=== PATIENT | female | born 1945 | race Caucasian/White ===

== ENCOUNTER 2019-12-24 06:51 | Day surgery (SDC) | payer MEDICARE, SELFPAY ==
--- NOTE | 2019-12-05 10:49 | EKG12_ITS ---
Test Reason : PRE-OP Blood Pressure : / mmHG Vent. Rate : 060 BPM Atrial Rate : 060 BPM P-R Int : 186 ms QRS Dur : 084 ms QT Int : 400 ms P-R-T Axes : 028 007 021 degrees QTc Int : 400 ms Normal sinus rhythm Normal ECG Confirmed by CHAGO LOCKE, REGINA ([id number]), editorial cartoonist SILVER RODRÍGUEZ ([id number]) on 12/10/2019 9:23:02 AM Referred By: Jim Ball Confirmed By:REGINA ANDERS MD
[2019-12-05 11:04] LABS: Hematocrit 37.2 % (37-47); Hemoglobin 13.9 g/dL (12.0-15.0); Mean Corp Hgb Conc 37.4 g/dL (32-36); Mean Corpuscular Hgb 34.3 pg (27.0-32.0); Mean Corpuscular Volume 91.9 fL (81-99); Mean Platelet Vol. 8.9 fl (6.2-12.0); Platelet Count 169 K/mm3 (150-450); RBC Distribution Width CV 12.3 % (11.6-14.6); Red Blood Count 4.05 M/mm3 (4.2-5.4); White Blood Count 7.3 K/mm3 (4.4-11.0)
[2019-12-05 11:39] LABS: AST(SGOT) 25 U/L (15-37); Alanine Aminotransfer ALT/SGPT 23 U/L (13-56); Albumin, Serum 3.4 g/dL (3.2-5.0); Alkaline Phosphatase 76 U/L (45-117); Anion Gap 6 (5-15); BUN 14 mg/dL (7-18); BUN/Creat Ratio 25.7 RATIO (10-20); Bilirubin, Direct 0.16 mg/dL (0.00-0.30); Calcium,Total 8.6 mg/dL (8.5-10.1); Chloride 92 mmol/L (98-107); Creatinine, Serum 0.54 mg/dL (0.55-1.02); EST Glomerular Filtration Rate 115 mL/min (>60); Est Glom Filt Rate - Afr Amer 139 mL/min (>60); Globulin 3.5 g/dL (2.2-4.2); Glucose 94 mg/dL (74-106); Protein, Total 6.9 g/dL (6.4-8.2); Sodium Level 126 mmol/L (136-145)
[2019-12-05 11:44] LABS: Hemoglobin A1c 5.4 % (3.8-5.6)
--- NOTE | 2019-12-20 15:58 | HP.PCM_ITS ---
History and Physical Date of Admission: 12/24/19 Surgical History and Physical Olinda Calderón, a 74 year old female 2 0 0 0 2, presents for Vaginal Hysterectomy and AP Repair on December 24, 2019 at 7:30. -- Utero-Vaginal Prolapse Symptoms -- Prolapse which began on going. Olinda Waters claims it started gradual and has been present ongoing. It occurs all the time. It is located in the vaginal. Olinda Waters characterizes the quality pressure, bulge. Severity is worsening; It is aggravated by standing, walking, lifting. Associated signs and symptoms are pressure, pain. Additional comments are: patient states has had prolapse but getting worse. MEDICATIONS HISTORY: Patient is also takin. amlodipine 5 mg tablet, 1 PO QD 2. buspirone 10 mg tablet, 1 PO BID 3. duloxetine 60 mg capsule,delayed release, 1 PO QD 4. Linzess 145 mcg capsule, As Directed 5. Lyrica 150 mg capsule, 1 PO BID 6. nadolol 20 mg tablet, 1 PO QD 7. nystatin 100,000 unit/gram topical powder, As Directed 8. pantoprazole 40 mg tablet,delayed release, 1 PO BID 9. Repatha SureClick 140 mg/mL subcutaneous pen injector, As Directed 10. Voltaren 1 % topical gel, As Directed ALLERGIES: Codeine, Darvon, Liptor, Mevacor, Oxacillin, Throat closes, valium, Zocor, Codeine, Fatigue, Darvon, Intolerance-unknown, Lipitor, Liver failure, Mevacor, Liver failure, Oxacillin, Anaphylaxis, Valium, Intolerance-unknown, Zocor and Liver failure Infections - Chicken pox and Measles Illnesses - breast cancer, lymphedema Accidents - None Hospitalizations - Childbirth and see surgery heart concerns, high BP, spinal stenosis; Review of Systems: GENERAL - Denies fever, or chills SKIN - Denies skin changes EYES - Denies visual changes EARS - Denies difficulty hearing NOSE - Denies nasal congestion or bleeding MOUTH - Denies sore throat or difficulty swallowing NECK - Denies pain or swelling RESPIRATORY - Denies shortness of breath or wheezing CARDIOVASCULAR - Denies palpitations or chest pain GASTROINTESTINAL - Denies nausea, vomiting, diarrhea, constipation GENITOURINARY - Denies dysuria, frequency of urination, incontinence of urine MUSCULOSKELETAL - Denies joint or muscle pain NEUROLOGICAL - Denies localized numbness or weakness PSYCHIATRIC - Denies depression or anxiety ENDOCRINE - Denies heat or cold intolerance, weight loss or gain HEMATO-IMMUNOLOGIC - Denies excessive bleeding with cuts SOCIAL HISTORY: Alcohol Use - denies use Smoking - denies use Diet - balanced Diet Lifestyle - Exercise - active Seat Belt Use - always Employer - retired 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 MENSTRUAL HISTORY: LMP Known?- POSTMENOPAUSAL, Age Onset Menarche - 6 PAST PREGNANCIES: Total Pregnancies - 2; Full Term Pregnancies - 2; Premature - 0; Abortions, Induced - 0; Abortions, Spontaneous - 0; Ectopics - 0; Multiple Births - 0; Living Children - 2 SURGICAL HISTORY: 1. lumpectomy-left breast ; - breast cancer 2. Tubal ; - 3. Left knee surgery, 2007 ; - Pain 4. rt and left knee surgery PHYSICAL EXAM BP- 142/76 Sitting, Right arm, regular cuff Weight- 163.0 lbs Height- 59.5 inch BMI:32.44 CONSTITUTIONAL - NAD, well nourished, and well developed HEENT - Normocephalic, PERRLA, EOMI NECK - no nodes, no nuchal rigidity and thyroid normal size and texture LYMPH NODES - edematous right arm LUNGS - CTA x2 without wheezes, crackles or rales CARDIAC - Regular rate and rhythm without rubs, murmurs, or gallops BREAST - Sitting and supine without lumps, masses, discharge, or skin changes, L breast w/ prior incisions and radiation changes to skin ABDOMEN - Without hepatosplenomegaly, distention, masses, rebound, or guarding; normal bowel sounds, no hernias EXTREMITIES - No edema or calf tenderness NEUROLOGICAL - Cranial nerves II-XII grossly intact PSYCHIATRIC - A and O to time, place, person, mood and affect External Genital Vagina - non-tender without lesions Urethra/Urethral Meatus - non-tender Bladder - non-tender Vagina - loss of rugae and cystocele 2 cm outside introitus; rectocele to introitus Cervix - without cervical motion tenderness and has normal size and features without evident lesions and protrudes to within 2 cm of the introitus with tenaculum pull-down Uterus - 5-6 cm in size, mobile and nontender Adnexa - clear without masses or tenderness ASSESSMENT/PLAN:Cystocele Midline, Uterovag Prolapse Incomplete Discussed options for treatment including expectant management, pessary use or proceeding with Vaginal Hysterectomy and AP Repair. Desires the surgery. Discussed RBAS and all questions answered.
[2019-12-24] VITALS (18 sets, daily range): BP systolic 78–141; BP diastolic 36–71; PULSE 51–84; RESP 16–98; TEMP 36.1–36.7; O2SAT 94–100; BMI 31.5
[2019-12-24 07:50] LABS: Bedside Glucose 108 mg/dL (70-110)
[2019-12-24] MEDS: Lactated Ringers 1,000 ML 100 ML IV ×2 (07:57→10:52)
[2019-12-24 08:13] LABS: Sodium Level 140 mmol/L (136-145)
--- NOTE | 2019-12-24 08:35 | HYST_PTH ---
PATIENT: JUAN WOLFF LOC: [facility] U#:[id number] AGE/SX: 74/F ROOM: RE12/24/[address]: Dr. Jim Ball MD : 1945 BED: DIS: 12/25/2019 SPEC #: [id number] RECD: 12/24/19 10:44 STATUS: DWIGHT KENNEY #: [id number] JAQUELIN: 12/24/19 08:[address]: Jim Ball DEPT: SURGICAL PATHOLOGY RECD BY: Vlad Kaur ENTERED: 12/24/19 11:41 SP TYPE: HYSTERECT OTHR DR: Dr. Pete Mandujano MD Tissues: Uterus, NOS Procedures: Surgery Specimen Level II Surgery Specimen Level V HEADER OPERATION: Vaginal hysterectomy, A & P repair PRE-OP DIAGNOSIS: Incomplete uterine vaginal prolapse cystocele midline TISSUE SUBMITTED: Uterus and vaginal mucosa MICROSCOPIC DIAGNOSIS Uterus, hysterectomy: Cervix - nabothian cysts and minimal chronic inflammation. Endometrium - inactive endometrium with cystic change. Myometrium - leiomyoma and calcifications of vessel viera. Vaginal mucosa, anterior and posterior repair: No pathologic change. AM:armida 12/25/19 MICROSCOPIC DESCRIPTION Slides are reviewed. GROSS DESCRIPTION Received in fixative is one container labeled with the patient's name and designated uterus, vaginal mucosa. The specimen consists of a hysterectomy specimen consisting of uterus with cervix and detached pieces of mucosal tissue. The uterus with cervix weighs 28 gm and measures 7.5 x 3.5 x 2 cm. The serosal surface is focally ragged. The ectocervical mucosa is unremarkable. The external os is slit-like in contour. The endocervical canal measures 3.5 cm in length and the endocervical mucosa is morales, glistening and unremarkable. The triangular endometrial cavity measures 3.5 cm in length and up to 2 cm in width. The endometrium is morales, glistening without any mass lesion and measures <0.1 cm in thickness. Sections of the uterine wall do not reveal any mass lesion and measures 1 cm in thickness. Also present in the container are five variable sized pieces of morales mucosal tissue measuring in aggregate 5.5 x 3 x 0.5 cm. No mucosal lesion is identified. Multiple instrumentation hale are noted. Boarding Mother sections are submitted in five cassettes as follows: 1 - anterior cervix, 2 - posterior cervix, 3 - anterior uterine wall, 4 - posterior uterine wall, 5 - detached pieces of mucosal tissue. / SJ:armida 12/24/19 TC:5 CPT: 05449, 45029
[2019-12-24 08:40] LABS: Thyroid Stim Hormone (TSH) 1.63 uIU/mL (0.358-3.74)
--- NOTE | 2019-12-24 08:42 | OP.PCM_ITS ---
Report of Operation Date of Procedure: 12/24/19 Pre-Operative Diagnosis: Incomplete Uterovaginal Prolapse, Cystocele, Rectocele Post-Operative Diagnosis: Incomplete Uterovaginal Prolapse, Cystocele, Rectocele Surgery/Procedure Performed:: Vaginal Hysterectomy and Anterior Posterior Repair Description of Surgical Findings:: 6 cm uterus with cystocele that protrudes to the introitus and moderate rectocele.. truck supervisor: Lindsey Acosta truck supervisor: Danika Hassan Type of Anesthesia:: General - Endotracheal Anesthesiologist: Ludmila Teague Specimen's removed: Uterus and vaginal mucosa Drains: Liao to straight drain Estimated Blood Loss (mL): 100 cc Fluids Replaced: Crystalloid Description of Procedure: Surgeon: Jim Ball MD, FACOG Indications: This is a 74-year-old patient who is been having problems with symptomatic uterovaginal prolapse. Conservative measures have not been helpful. Given this the patient desires that we proceed the above procedure. She has been counseled regarding the risk and indications of this procedure including the possibility of bleeding, infection, and injury to surrounding structures such as bowel bladder. All questions were answered. Procedure: Patient was taken to the operating room where after induction of general anesthesia she was placed in the dorsal lithotomy position and prepped and draped in the usual sterile fashion. A Liao catheter was placed. Anterior cervix was grasped with a tenaculum and anterior cervix circumscribed with cautery on a setting of 35 W coagulation. Anterior vaginal mucosa was undermined and anterior peritoneum was easily entered. The posterior aspect of the cervix was circumscribed with a knife and posterior peritoneum easily entered. Progressive bites were taken on either side of the uterine cervix and each pedicle ligated with 0 Vicryl suture. Superior pedicles were ligated ?2 with 0 Vicryl suture and sidewall pedicles were examined and oversewn where necessary with [id number] 0 Vicryl suture to achieve hemostasis. Posterior vaginal cuff was oversewn with running locked 0 Vicryl suture. Hemostasis was noted and peritoneum was closed in a pursestring fashion incorporating superior pedicles into the stitch. Vaginal cuff was then closed front to back with interrupted [id number] 0 Vicryl suture. Hemostasis was noted. Attention was turned toward the anterior repair portion of the proced ure. Anterior vaginal mucosa was undermined and divided and then imbricated toward the midline with interrupted 0 Vicryl sutures. Vaginal mucosa was trimmed and then closed with interrupted 2-0 chromic suture. Vaginal cuff was then closed front to back with interrupted [id number] 0 Vicryl suture. Hemostasis was noted. Attention was turned toward the posterior repair portion of the proced ure. Remnants of the hymenal ring were grasped with Allises and a V-shaped incision was made in the perineum. Rectovaginal mucosa was then undermined divided and then imbricated toward the midline with interrupted 0 Vicryl suture. Vaginal mucosa was trimmed and then closed with running locked 2-0 chromic suture. Remnants of the bulbocavernosus muscles were identified and brought toward the midline with a single [id number] 0 Vicryl suture and perineum was closed in the usual fashion with running and subcuticular, and oqzgkn-[id number] 2-0 chromic suture. Hemostasis was noted. Liao catheter was again opened and clear yellow urine was noted. Vagina was packed with a complete pack of half-inch iodoform tape. Patient tolerated the procedure well was taken to recovery room in satisfactory condition; sponge instrument and needle counts were all reportedly correct. Estimated blood loss for the case was 100 cc cc. Clindamycin 900 mg and gentamicin were given prior to beginning the operative procedure. There were no apparent complications of the surgery. Specimen to pathology was uterus and vaginal mucosa. Grafts/Implants Used: None - Complications None - Admit VTE Documentation VTE Pharm Prophylaxis ordered?: Yes
--- NOTE | 2019-12-24 08:45 | DCINST_ITS ---
Discharge Diet: No Restrictions Discharge Activity: Return to Normal Activity, May Not Drive - while taking narcotic pain medications., May Shower, May Take a Tub Bath May resume sexual activity in: 6-8 weeks Call your doctor if your incision/area has: Continuous Slow Oozing, Sudden Inc reased Bleeding, Increased Pain/ Swelling, Increased Redness, Foul Smelling Discharge Call your doctor if you observe: Fever of 101 or Higher, Inability to urinate, Inability to have a bowel movement, Using more than one pad per hour Allergies/Adverse Reactions: Allergies codeine Allergy (Verified 12/24/19 07:20) Rash oxacillin Allergy (Verified 12/24/19 07:20) Swelling adhesive tape Adverse Reaction (Verified 12/24/19 07:20) NEEDS FOLLOW-UP Fovpiyn-Yhr-Pzi Reductase Inhibitor Adverse Reaction (Verified 12/24/19 07:20) NEEDS FOLLOW-UP Medications to take at Discharge Amlodipine [Norvasc] 5 mg PO DAILY 11/30/19 Bifidobacterium Infantis [Align] 4 mg PO DAILY 11/30/19 Buspirone HCl 10 mg PO BID 11/30/19 Cholecalciferol (VIT D3) [Vitamin D] 1,000 unit PO DAILY 11/30/19 Duloxetine HCl 60 mg PO QHS 11/30/19 Evolocumab [Repatha Sureclick] 140 mg SQ .Q2WEEK 11/30/19 Immune Force 1 cap PO DAILY 11/30/19 Lisinopril 40 mg PO DAILY 11/30/19 Nadolol [Corgard (Beta Catalina)] 20 mg PO DAILY 11/30/19 Pantoprazole Sodium [Protonix] 40 mg PO BID 11/30/19 Pregabalin [Lyrica] 150 mg PO BID 11/30/19 Ubidecarenone [Coq-10] 100 mg PO DAILY 11/30/19 Docusate Sodium [Colace] 100 mg PO BID PRN PRN #60 cap 12/24/19 Oxycodone [Oxyir] 5 mg PO Q6H PRN PRN 7 Days #10 tablet 12/24/19 The following prescriptions were given: Docusate Sodium [Colace] 100 mg PO BID PRN PRN #60 cap PRN Reason: Constipation Transmission Status: Pending to [facility] Oxycodone [Oxyir] 5 mg PO Q6H PRN PRN 7 Days #10 tablet PRN Reason: Pain Score 6-10/10 Transmission Status: Sent to [facility] Primary Care Physician: Pete Mandujano MD [Primary Care Provider] - Test Results: Test results from this visit will be discussed in further detail at your follow- up appointment, if applicable. Please Follow Up With: Jim Ball MD When: 2 to 3 weeks
[2019-12-24 11:20] LABS: Bedside Glucose 105 mg/dL (70-110)
[2019-12-24] MEDS: Dextrose 5%-Lactated Ringers 1,000 ML 125 ML IV ×3 (12:11→22:21)
[2019-12-24] MEDS: Ketorolac 15 MG/ML Vial IV ×3 (12:11→23:10)
[2019-12-24] MEDS: Enoxaparin 30 MG/0.3 ML Syringe SC (17:39)
[2019-12-24] MEDS: busPIRone 5 MG Tablet 10 MG PO (22:35)
[2019-12-24] MEDS: Pregabalin 75 MG Capsule 150 MG PO (22:36)
[2019-12-24] MEDS: DULoxetine Hcl 60 MG Capsule PO (22:36)
[2019-12-24] MEDS: Acetaminophen 500 MG Tablet 1000 MG PO (22:37)
[2019-12-24] MEDS: Pantoprazole Sodium 40 MG Tablet PO (22:37)
[2019-12-24] MEDS: 0.9% Saline Lock 10 ML Syringe IV (23:10)
[2019-12-25 03:25] VITALS: BP 121/50; PULSE 72; RESP 18; TEMP 36.7; O2SAT 97
[2019-12-25 06:13] LABS: Creatinine, Serum 0.55 mg/dL (0.55-1.02); EST Glomerular Filtration Rate 114 mL/min (>60); Est Glom Filt Rate - Afr Amer 137 mL/min (>60); Estimated Creatinine Clearance 34.38 ml/min
[2019-12-25] MEDS: 0.9% Saline Lock 10 ML Syringe IV ×3 (06:19→06:31)
[2019-12-25] MEDS: Ketorolac 15 MG/ML Vial IV ×2 (06:19→12:03)
[2019-12-25 06:36] LABS: Scan Indicated on CBC? Y/N YES- FLAGS NOTED
[2019-12-25 06:38] LABS: POSITIVE DIFFERENTIAL YES
[2019-12-25 07:09] VITALS: O2SAT 100
[2019-12-25 07:41] VITALS: BP 100/37; PULSE 66; RESP 18; TEMP 37.1; O2SAT 98
--- NOTE | 2019-12-25 07:41 | NURSING ---
Patient ambulated in hallway with AUTOMOBILE REPAIR SERVICE ESTIMATOR with cane. Tolerated well.
[2019-12-25] MEDS: Pantoprazole Sodium 40 MG Tablet PO (07:45)
[2019-12-25] MEDS: busPIRone 5 MG Tablet 10 MG PO (07:45)
[2019-12-25] MEDS: amLODIPine 5 MG Tablet PO (07:45)
[2019-12-25] MEDS: Lisinopril 40 MG Tablet PO (07:45)
[2019-12-25] MEDS: Pregabalin 75 MG Capsule 150 MG PO (07:51)
[2019-12-25] MEDS: Nadolol 20 MG Tablet PO (07:51)
[2019-12-25 08:30] LABS: Hemoglobin 11.7 g/dL (12.0-15.0); Mean Corp Hgb Conc 33.4 g/dL (32-36); Mean Corpuscular Hgb 31.5 pg (27.0-32.0); Mean Corpuscular Volume 94.3 fL (81-99); Mean Platelet Vol. 9.8 fl (6.2-12.0); Platelet Count 139 K/mm3 (150-450); RBC Distribution Width CV 13.1 % (11.6-14.6); RBC Distribution Width SD 44.8 fl (35.1-43.9); Red Blood Count 3.71 M/mm3 (4.2-5.4); White Blood Count 8.4 K/mm3 (4.4-11.0)
--- NOTE | 2019-12-25 08:41 | PCM.PN.OB ---
Subjective: Patient without complaints. Tolerating diet well. Denies flatus. Liao catheter out. Minimal vaginal bleeding reported. Objective: Vaginal pack is out with minimal vaginal bleeding noted. Hemoglobin hemoglobin and creatinine okay. - Physical Exam Vitals/I&O's: Vital Signs Temp Pulse Resp BP Pulse Ox 98.7 F 66 18 100/37 L 98 12/25/19 07:41 12/25/19 07:41 12/25/19 07:41 12/25/19 07:41 12/25/19 07:41 Oxygen Flow Rate (L/min) 2 Oxygen Delivery Method Room Air Weight: 161 lb 9.581 oz Body Mass Index (BMI) 31.5 Finger Stick Blood Glucose 105 Intake and Output for Last 24 Hours 12/23/19 12/24/19 12/25/19 23:59 23:59 23:59 Intake Total 3037.58 / 3037.58 1400 / 1400 Output Total 525 / 525 200 / 200 Balance 2512.58 / 2512.58 1200 / 1200 Laboratory Results 12/24/19 11:05: POC Glucose 105 12/25/19 05:20: WBC 8.4, RBC 3.71 L, Hgb 11.7 L, Hct 35.0 L, MCV 94.3, MCH 31.5, MCHC 33.4, RDW Std Deviation 44.8 H, RDW Coeff of Karel 13.1, Plt Count 139 L, MPV 9.8 12/25/19 05:20: Creatinine 0.55, Estim Creat Clear Calc 34.38, Est GFR (MDRD) Af Amer 137, Est GFR (MDRD) Non-Af 114 Current Medications Acetaminophen (Tylenol) 1,000 mg PO Q8H PRN PRN PRN Reason: Pain Score 1-3/10 or Fever Last Admin: 12/24/19 22:37 Dose: 1,000 mg Documented by: Amlodipine Besylate (Norvasc) 5 mg PO DAILY [facility] Last Admin: 12/25/19 07:45 Dose: 5 mg Documented by: Buspirone HCl (Buspar) 10 mg PO BID [facility] Last Admin: 12/25/19 07:45 Dose: 10 mg Documented by: Cholecalciferol (Vitamin D (25mcg)) 1,000 unit PO DAILY [facility] Last Admin: 12/25/19 07:45 Dose: 1,000 unit Documented by: Docusate Sodium (Colace) 100 mg PO BID PRN PRN PRN Reason: Constipation Duloxetine HCl (Cymbalta) 60 mg PO QHS [facility] Last Admin: 12/24/19 22:36 Dose: 60 mg Documented by: Hydromorphone HCl (Dilaudid Inj) 0.5 mg IV Q3H PRN PRN PRN Reason: Pain Score 4-10/10 Dextrose/Lactated Ringer's () 1,000 mls @ 125 mls/hr IV .Q8H [facility] Last Infusion: 12/25/19 06:27 Dose: Infused Documented by: Sodium Chloride () 250 mls @ 15 mls/hr IV .[id number] PRN PRN Reason: Saline Flush Ketorolac Tromethamine (Toradol (Bkc)) 15 mg IV Q6 [facility] Stop: 12/29/19 12:01 Last Admin: 12/25/19 06:19 Dose: 15 mg Documented by: Lisinopril (Zestril) 40 mg PO DAILY [facility] Last Admin: 12/25/19 07:45 Dose: 40 mg Documented by: Nadolol (Corgard) 20 mg PO DAILY [facility] Last Admin: 12/25/19 07:51 Dose: 20 mg Documented by: Ondansetron HCl (Zofran) 4 mg IV Q4H PRN PRN PRN Reason: NAUSEA Oxycodone HCl (Oxyir) 5 mg PO Q4H PRN PRN PRN Reason: Pain Score 4-10/10 Pantoprazole Sodium (Protonix) 40 mg PO BID [facility] Last Admin: 12/25/19 07:45 Dose: 40 mg Documented by: Pregabalin (Lyrica) 150 mg PO BID [facility] Last Admin: 12/25/19 07:51 Dose: 150 mg Documented by: Sodium Chloride () 10 - 40 ml IV UD PRN PRN Reason: SALINE FLUSH Last Admin: 12/25/19 06:31 Dose: 10 ml Documented by: Medical Necessity - Tobacco Use Smoking Status: Never smoker Tobacco Use: Non-smoker Assessment/Plan Doing well postoperative day #1 status post vaginal hysterectomy and anterior posterior repair. Will discharge to home when able to void on own.
--- NOTE | 2019-12-25 11:53 | PHA.DC.MC ---
Pharmacy Service has performed discharge medication reconciliation and counseling for this patient. 1. OXYCODONE 5MG PO Q4H PRN PAIN 6-10 2. DOCUSATE 100MG PO BID PRN CONSTIPATION The patient's discharge medication list was reviewed for discrepancies and discrepancies were resolved. Home Medications Amlodipine [Norvasc] 5 mg PO DAILY 11/30/19 Bifidobacterium Infantis [Align] 4 mg PO DAILY 11/30/19 Buspirone HCl 10 mg PO BID 11/30/19 Cholecalciferol (VIT D3) [Vitamin D] 1,000 unit PO DAILY 11/30/19 Duloxetine HCl 60 mg PO QHS 11/30/19 Evolocumab [Repatha Sureclick] 140 mg SQ .Q2WEEK 11/30/19 Immune Force 1 cap PO DAILY 11/30/19 Lisinopril 40 mg PO DAILY 11/30/19 Nadolol [Corgard (Beta [place]ina)] 20 mg PO DAILY 11/30/19 Pantoprazole Sodium [Protonix] 40 mg PO BID 11/30/19 Pregabalin [Lyrica] 150 mg PO BID 11/30/19 Ubidecarenone [Coq-10] 100 mg PO DAILY 11/30/19 Docusate Sodium [Colace] 100 mg PO BID PRN PRN #60 cap 12/24/19 Oxycodone [Oxyir] 5 mg PO Q6H PRN PRN 7 Days #10 tab 12/24/19 The patient was counseled on the following discharge medications and changes in medications for homegoing were reviewed. The Reason for Use, instructions for use, and potential side effects were reviewed for all new medications. The patient's questions regarding all of their medications were answered. The patient was able to verbally demonstrate an understanding of their discharge medications. Patient counseled by pharmacy grad internTushar.
[2019-12-25 14:45] VITALS: BP 139/63; PULSE 60; RESP 18; TEMP 36.5; O2SAT 96
== END 2019-12-25 15:09 | disposition home or self-care (01) ==
LOC: SDC 06:53 → AC 06:54 → ACINP 06:56 → MS3 08:47
PROVIDERS: Anesthesiology; Referring Provider Obstetrics & Gynecology; Visit Provider Obstetrics & Gynecology
PROC: (CPT 58260; principal; 2019-12-24 08:15)
DX: N81.2 Incomplete uterovaginal prolapse (principal); Z11.59 Encounter for screening for other viral diseases; E11.9 Type 2 diabetes mellitus without complications; E78.00 Pure hypercholesterolemia, unspecified; K74.69 Other cirrhosis of liver; K21.9 Gastro-esophageal reflux disease without esophagitis; G25.81 Restless legs syndrome; K58.9 Irritable bowel syndrome, unspecified; I10 Essential (primary) hypertension; Z79.899 Other long term (current) drug therapy
CPT/HCPCS: 57260; 58260; 80048; 80076; 82565; 82962; 83036; 84295; 84443; 85027; 86850; 86900; 86901; 87635; 88302; 88307; 93005; 94762; 94799; 99251; J7120; A4216; G0463; J2405; U0003